=== PATIENT | male | born 1940 | race Caucasian/White ===

== ENCOUNTER 2018-01-24 10:36 | Emergency (ER) | payer OTHER ==
[~2018-01-24] VITALS: Ht 177.8 cm; Wt 95.3 kg
[2018-01-24] MEDS ORDERED: MOBIC7.5 MG PO (11:04)
[2018-01-24] MEDS ORDERED: CATAPRES0.2 MG PO (11:04)
[2018-01-24] MEDS ORDERED: COZAAR 50 MG TA50 M2 PO (11:04)
[2018-01-24] MEDS ORDERED: OMEPRAZOLE40 MG PO (11:05)
[2018-01-24] MEDS ORDERED: LIPITOR10 MG PO (11:05)
[2018-01-24] MEDS ORDERED: OMEGA-31000 M1 PO (11:05)
[2018-01-24] MEDS ORDERED: ASPIR 8181 MG PO (11:05)
[2018-01-24] MEDS ORDERED: POTASSIUM20 PO (11:06)
[2018-01-24] MEDS ORDERED: CENTRUM SILVER1 EAC4 PO (11:06)
[2018-01-24] MEDS ORDERED: MAGOX 400400 MG PO (11:06)
[2018-01-24] MEDS ORDERED: IRON325 PO (11:06)
[2018-01-24 11:07] LABS: URINE BILIRUBIN NEGATIVE (Negative); URINE BLOOD TRACE (Negative); URINE CLARITY CLEAR; URINE COLOR YELLOW; URINE GLUCOSE-RANDOM NEGATIVE (Negative); URINE KETONES NEGATIVE (Negative); URINE LEUKOCYTES-REFLEX NEGATIVE (Negative); URINE NITRITE-REFLEX NEGATIVE (Negative); URINE PROTEIN NEGATIVE (Negative); URINE SPECIFIC GRAVITY <= 1.005 (1.005-1.030); URINE UROBILINOGEN 0.2 E.U./dl (0.2-1.0)
[2018-01-24 11:14] LABS: HEMATOCRIT 41.8 % (42.0-52.0); HEMOGLOBIN 14.1 gm/dL (14.0-18.0); MCH 30.9 pg (26.0-34.0); MCHC 33.7 g/dL (28.0-37.0); MCV 91.6 fL (80.0-100.0); NUCLEATED RBCS 0 /100WBC; PLATELET COUNT* 355 thou/uL (150-400); RBC 4.56 mil/uL (4.50-6.00); RDW-CV 12.7 % (10.5-14.5); WBC 7.5 thou/uL (4.0-11.0)
[2018-01-24 11:25] LABS: CALCIUM 9.2 mg/dL (8.5-10.1); CREATININE 1.8 mg/dL (0.6-1.3)
[2018-01-24 11:30] LABS: ALBUMIN 2.8 g/dL (3.4-5.0); TOTAL BILIRUBIN 0.3 mg/dL (<0.1-1.0); TOTAL PROTEIN 6.9 g/dL (6.4-8.2)
[2018-01-24 11:41] LABS: ABSOLUTE EOSINOPHILS 0.6 thou/uL (0.0-0.7); ABSOLUTE LYMPHOCYTES 2.3 thou/uL (0.8-5.3); ABSOLUTE MONOCYTES 0.3 thou/uL (0.0-1.2); ABSOLUTE NEUTROPHILS 4.3 thou/uL (1.6-8.1); PLATELET ESTIMATE ADEQUATE
[2018-01-24 11:43] LABS: ANISOCYTOSIS 1+; POIKILOCYTOSIS 1+
[2018-01-24] MEDS ORDERED: CIPRO500 MG PO (12:51)
[2018-01-24] MEDS ORDERED: BENTYL 20 MG TA20 M1 PO (12:52)
[2018-01-24 14:38] VITALS: BP 144/79
== END 2018-01-24 14:39 | disposition home or self-care (01) ==
LOC: M.ERS 10:36
PROVIDERS: Physician Assistant
DX: R10.30 Lower abdominal pain, unspecified (principal); I10 Essential (primary) hypertension; K51.90 Ulcerative colitis, unspecified, without complications; Z88.0 Allergy status to penicillin